=== PATIENT | female | born 1990 | race Caucasian/White ===

== ENCOUNTER → 2017-10-26 | Outpatient (CLI) | payer BC ==
[~2017-10-26] MED LIST: BCPILLS
== END | disposition home or self-care (01) ==
LOC: C.LAB1850 14:35
PROVIDERS: ATTEND Obstetrics & Gynecology
DX: Z34.83 Encounter for supervision of other normal pregnancy, third trimester (principal)

== ENCOUNTER → 2017-10-29 | Outpatient (CLI) | payer BC ==
[2017-10-29 10:15] LABS: HEMATOCRIT 38.1 % (37-47); HEMOGLOBIN 13.3 g/dL (12.0-16.0)
== END | disposition home or self-care (01) ==
LOC: C.LAB1850 09:14
PROVIDERS: ATTEND Obstetrics & Gynecology
DX: Z34.83 Encounter for supervision of other normal pregnancy, third trimester (principal)

== ENCOUNTER 2020-07-02 05:51 | Inpatient (IN) ==
--- NOTE | 2020-06-19 10:16 | PAT Medication Instructions ---
Medication Instructions Date of Service June 19, 2020 Home Medications nutritional supplement-fiber [Juice Plus] 1 ea PO BID STOP taking 2 weeks before surgery (or as soon as possible if surgery is within 2 weeks) nutritional supplement-fiber [Juice Plus] 1 ea PO BID Other Notes If you have any questions please call us at [phone] or [phone] or [phone] or [phone]
--- NOTE | 2020-06-20 10:17 | Anesthesiology Consultation ---
Date of Service June 20, 2020 Assessment & Plan (1) Encounter for pre-operative examination: Chart Review Chart Review: Acceptable Risk for Surgery and Patient seen in Pre Admission Testing Pt does have small veins- may be difficult IV stick Had two previous C-sections. Initial done (in 2015) secondary to f ailure to progress and cephalopelvic disproportion. No issues with initial C- section. With second (done in 2017)- no issues noted until towards the end- pt started to have sensation with suturing- was put under sedation. Previous C-sections were not done at [facility] (Operative reports from previous C- sections included- no mention of issues during second . Per PAT appt on 06/14/20, pt resides in [facility]. Works in [employer] but working from home currently. Wears mask, uses good hand hygiene and socially distances. No known Covid positive contacts or Covid related symptoms. Per surgeon's office- will do Covid test 3-4 days prior to - educated patient to follow up with surgeon's office regarding Covid testing. Educated on importance of self quarantining, social distancing and wearing mask in public both for the patient and household contacts. Teaching & Discussion Pre-Anesthesia Teaching/Discussion Notes: Instructed NPO after midnight before surgery,except medications with 15 cc of water. Medication instructions provided according to the [facility] guidelines. History Surgery Operation Date: 07/02/20 07:30 Proposed Procedures p Section in LD - Dave Cyndi Wolf MD Height/Weight Height: 5 ft Weight: 54.6 kg Allergies Allergy/AdvReac Type Severity Reaction Status Date / Time hydrocodone Allergy Mild NAUSEA/VOMI Verified 06/14/20 10:49 TING Medications Home Medications Medication Instructions Recorded Confirmed Last Taken nutritional supplement-fiber 1 ea PO BID 06/14/20 06/14/20 Unknown [Juice Plus] Past Medical History Medical History History of gastric ulcer 2009- no issues since that time Migraine Stable and controlled Exercise / Class Metabolic Activity II 4-5 Yardwork/Stairs/Walk up hill (one flight of stairs - no chest pain- minimal SOB secondary to ) Past Family History Family History Sister Fibroids Other No pertinent family history Past Surgical History Surgical History H/O section X2 H/O ovarian cystectomy H/O wisdom tooth extraction Past Anesthesia History No Hx of Anesthesia Complications and No Family Hx of Anesthesia Complications History of PONV No Hx of PONV and No Hx of Motion Sickness Social History Smoking Status: Never smoker Do You Dip or Chew Tobacco: No Hx Alcohol Use: Yes (WHEN NOT ) Alcohol type: beer alcohol intake frequency: a few times a week Alcohol Intake Frequency Comment: BEER WHEN NOT Hx Substance Use: No Review of Systems Occ reflux- related- stable SOB- occ - secondary to - relieved with standing up Patient denies chest pain, shortness of breath, dyspnea on exertion, reflux, cough, wheezing, palpitations. No hx of seizures, stroke, SD. No hx of blood clots or blood transfusions Physical Exam Vital Signs VITALS BP 96/68 P 90 TEMP 98.1 SP02 96% RESP 16 Constitutional no acute distress ENMT Mouth: no TMJ clicking Thyromental Distance: < 3.5 Finger Breadths (3.0) Mallampati Class: II Denies loose or missing teeth Neck neck extension not limited Respiratory normal respiratory effort; no respiratory distress Auscultation: lungs clear to auscultation bilaterally; no wheezes Cardiovascular Rate/Rhythm: regular rate and regular rhythm Heart Sounds: no murmur Musculoskeletal Spine: no pain with cervical ROM Neurologic moves all extremities Psychiatric Orientation: alert Testing Laboratory Results 06/20/20 10:48 06/20/20 10:48 PT 9.3 Seconds (9.0-12.0) 06/20/20 10:48 INR 0.9 (0.9-1.1) 06/20/20 10:48 APTT 22.8 Seconds (21.0-31.0) 06/20/20 10:48 Blood Type A Positive 06/20/20 10:48 Antibody Screen NEGATIVE 06/20/20 10:48
[2020-06-20 12:20] LABS: Basophils # (auto) 0.02 K/uL (0-0.2); Basophils % (auto) 0.2 %; Eosinophils # (auto) 0.17 K/uL (0-0.5); Eosinophils % (auto) 1.8 %; Hematocrit (blood only) 39.9 % (37-47); Hemoglobin 13.1 g/dL (12.0-16.0); Immature Granulocytes # (auto) 0.05 K/uL (0.00-0.02); Immature Granulocytes % (auto) 0.5 %; Lymphocytes # (auto) 2.11 K/uL (1.2-3.4); Lymphocytes % (auto) 21.9 %; Mean Corpuscular Hemoglobin 29.9 pg (25-34); Mean Corpuscular Hgb Conc 32.8 g/dL (32-36); Mean Corpuscular Volume 91.1 fL (80-100); Mean Platelet Volume 11.6 fL (7.4-10.4); Monocytes # (auto) 0.61 K/uL (0.11-0.59); Monocytes % (auto) 6.3 %; Neutrophils # (auto) 6.66 K/uL (1.4-6.5); Neutrophils % (auto) 69.3 %; Platelet Count 174 K/uL (130-400); RDW Coefficient of Variation 13.2 % (11.5-14.5); RDW Standard Deviation 43.4 fL (36.4-46.3); Red Blood Count 4.38 M/uL (4.2-5.4); White Blood Count 9.62 K/uL (4.8-10.8)
[2020-06-20 12:32] LABS: BUN Creatinine Ratio 8.4 (10-20); Calcium 8.3 mg/dl (8.5-10.1); Creatinine Clr Calc Pharmacy 97.6 ml/min; Est GFR (African American) 140.8; Est GFR (Non-African American) 121.5; INR 0.9 (0.9-1.1); Partial Thromboplastin Ratio 0.8; Partial Thromboplastin Time 22.8 Seconds (21.0-31.0); Potassium 4.6 mmol/L (3.5-5.1); Prothrombin Time 9.3 Seconds (9.0-12.0)
--- NOTE | 2020-06-24 15:18 | History and Physical Report ---
DATE OF ADMISSION: 07/02/2020 CHIEF COMPLAINT: Intrauterine , 39 weeks gestation, 2 previous sections. HISTORY OF PRESENT ILLNESS: The patient is a 30-year-old 3, para 2, good general health, no known drug allergies, only medications vitamins, well dated with first trimester ultrasound. Her due date is 07/08/2020. OBSTETRICAL HISTORY FOLLOWS: In 2016, she had a girl, 6 pounds 12 ounces. She had over a 24-hour labor and pushed off and on for 10 hours. She had arrest of labor secondary to cephalopelvic disproportion. Second in 2018, another girl, 5 pounds 9 ounces, repeat at 39 weeks. Presently being scheduled for repeat at 39 weeks and 1 day due to history of cephalopelvic disproportion and 2 previous sections. ALLERGIES: No known drug allergies. PAST SURGICAL HISTORY: Two previous C-sections. She has had 2 previous ovarian cystectomies and wisdom teeth removed. PAST MEDICAL HISTORY: No history of rheumatic fever, heart disease, heart murmur, diabetes, or tuberculosis. SOCIAL HISTORY: No smoking, no alcohol intake. 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 FAMILY HISTORY: She has 2 children in good health. Mom 55 in good health. Father 58 in good health. Two brothers and one sister in good health. REVIEW OF SYSTEMS: She does have a history of migraine headaches. PHYSICAL EXAMINATION: GENERAL: Well-developed, well-nourished 30-year-old white female, alert, oriented x3 and cooperative, in no acute distress, appears stated age. EYES: Conjunctivae are pink. Sclerae white, no evidence of jaundice. EARS: Had normal light reflex bilaterally. NOSE: Had normal mucosa. Septum is midline. There were no polyps. THROAT: No erythema or evidence of infection. Teeth are in good state of repair. HEAD: Normocephalic, normal distribution of hair. NECK: Supple. Trachea in the midline. Thyroid is not enlarged. There is no adenopathy appreciated. Both carotids are of good intensity. CHEST: Clear to auscultation and percussion. No wheezes, rales or rhonchi appreciated. BREASTS: Normal. ABDOMEN: Consistent with a term size fetus, estimated weight over 6 pounds. Well-healed Pfannenstiel scar. MUSCULOSKELETAL: Revealed no calf tenderness. PELVIC: Vertex presentation. Cervix posterior, 1-2 cm, firm. IMPRESSIONS OF THIS CASE: Two previous sections, status post wisdom teeth removal, status post ovarian cystectomy, history of cephalopelvic disproportion, intrauterine at 39+ weeks' gestation.
[2020-07-02] MEDS ORDERED: SODIUM CHLORIDE 0.9% 250 ML IV PRN (05:55)
[2020-07-02] MEDS ORDERED: cefOXitin 2,000 MG in DEXTROSE 5% 50 ML IV SCH (06:00)
[2020-07-02] MEDS ORDERED: LACTATED RINGER'S 1,000 ML IV SCH ×2 (06:00→09:30)
[2020-07-02] MEDS ORDERED: CITRIC ACID/SODIUM CITRATE 15 ML UDC PO SCH (06:00)
[2020-07-02 06:28] LABS: Basophils # (auto) 0.02 K/uL (0-0.2); Basophils % (auto) 0.2 %; Eosinophils # (auto) 0.37 K/uL (0-0.5); Eosinophils % (auto) 4.4 %; Hematocrit (blood only) 36.8 % (37-47); Hemoglobin 12.3 g/dL (12.0-16.0); Immature Granulocytes # (auto) 0.04 K/uL (0.00-0.02); Immature Granulocytes % (auto) 0.5 %; Lymphocytes # (auto) 2.34 K/uL (1.2-3.4); Lymphocytes % (auto) 27.8 %; Mean Corpuscular Hemoglobin 29.7 pg (25-34); Mean Corpuscular Volume 88.9 fL (80-100); Mean Platelet Volume 11.3 fL (7.4-10.4); Monocytes # (auto) 0.57 K/uL (0.11-0.59); Monocytes % (auto) 6.8 %; Neutrophils # (auto) 5.09 K/uL (1.4-6.5); Neutrophils % (auto) 60.3 %; Platelet Count 148 K/uL (130-400); RDW Coefficient of Variation 13.3 % (11.5-14.5); RDW Standard Deviation 43.6 fL (36.4-46.3); Red Blood Count 4.14 M/uL (4.2-5.4); White Blood Count 8.43 K/uL (4.8-10.8)
[2020-07-02 06:35] LABS: Mean Corpuscular Hgb Conc 33.4 g/dL (32-36)
[2020-07-02 06:38] LABS: INR 0.9 (0.9-1.1); Partial Thromboplastin Ratio 0.8; Partial Thromboplastin Time 23.1 Seconds (21.0-31.0); Prothrombin Time 9.5 Seconds (9.0-12.0)
[2020-07-02 07:05] LABS: BUN Creatinine Ratio 13.3 (10-20); Calcium 8.2 mg/dl (8.5-10.1); Creatinine Clr Calc Pharmacy 111.6 ml/min; Est GFR (African American) 143.2; Est GFR (Non-African American) 123.5
--- NOTE | 2020-07-02 07:23 | History & Physical Bridge Note ---
Date of Service July 02, 2020 History & Physical Bridge Note I have examined the patient, reviewed the History & Physical and in the interval since the performance of the History & Physical I have noted the following changes of clinical significance: no changes noted
[2020-07-02] MEDS ORDERED: fentaNYL citrate 100 MCG/2 ML VIAL ONE (07:25)
[2020-07-02] MEDS ORDERED: MoRPHine SULFATE PF 1 MG/ML 10 ML AMP/VIAL ONE (07:25)
[2020-07-02] MEDS ORDERED: PHENYLEPHRINE 100MCG/ML 5ML SYR ONE (08:23)
[2020-07-02] MEDS ORDERED: ePHEDrine sulfate 50 MG/ML SYR ONE (08:23)
[2020-07-02] MEDS ORDERED: ONDANSETRON INJ 2 MG/ML 2 ML VIAL ONE (08:23)
[2020-07-02] MEDS ORDERED: PHENYLEPHRINE HCL 10 MG/ML VIAL ONE (08:31)
[2020-07-02] MEDS ORDERED: OXYTOCIN 10 UNITS/ML VIAL IM ONE (08:42)
[2020-07-02] MEDS ORDERED: OXYTOCIN 10 UNITS/ML VIAL ONE ×4 (08:59→09:20)
[2020-07-02] MEDS ORDERED: KETOROLAC 30 MG/ML VIAL ONE (09:00)
[2020-07-02] MEDS ORDERED: DiphenhydrAMINE HCL 50 MG/ML VIAL ONE (09:18)
--- NOTE | 2020-07-02 09:21 | Post Operative Brief Note ---
Immediate Post Op Note v1 Date of Surgery July 02, 2020 Pre & Post Diagnosis Operation Date: 07/02/20 07:30 Pre-Op Diagnosis: Previous Section x 2; Pt desires Repeat Section. Post-Op Diagnosis: Same as Preop I identified the patient and participated in the time-out.: Yes Procedure Operation Date: 07/02/20 07:30 Actual Procedures p Section in LD; Live Male at 0837(Bilateral) - Dave Wolf MD Surgeon Dave Wolf MD Setter Molding And Coremaking Machines none Estimated Blood Loss 500 Findings Consistent with Post-Op Diagnosis Specimens placenta Drains Willoughby Catheter Anesthesia Type MAC Spinal Regional Complications none Disposition Accompanied Patient To Recovery: No Disposition: Recovery Room
[2020-07-02] MEDS ORDERED: ONDANSETRON INJ 2 MG/ML 2 ML VIAL IV PRN ×2 (09:22→09:44)
[2020-07-02] MEDS ORDERED: KETOROLAC 30 MG/ML VIAL IV PRN (09:22)
[2020-07-02] MEDS ORDERED: PROMETHAZINE HCL 25 MG in SODIUM CHLORIDE 0.9% 50 ML IV PRN ×2 (09:22→09:44)
[2020-07-02] MEDS ORDERED: DiphenhydrAMINE HCL 50 MG/ML VIAL IV PRN ×2 (09:22→09:44)
[2020-07-02] MEDS ORDERED: ZOLPIDEM TARTRATE 5 MG TAB PO PRN (09:22)
[2020-07-02] MEDS ORDERED: HYDROCORTISONE ACETATE 25 MG SUPP PR PRN (09:22)
[2020-07-02] MEDS ORDERED: DIPHTHERIA/TETANUS/PERTUSSIS 0.5 ML SYR/VIAL IM ONE (09:22)
[2020-07-02] MEDS ORDERED: MEPERIDINE HCL 50 MG/ML CARP IV PRN (09:22)
[2020-07-02] MEDS ORDERED: SUPERCREAM 0.870% 15 GM JAR EXT PRN (09:22)
[2020-07-02] MEDS ORDERED: BENZOCAINE 20% AER SPR 82.5 GM CAN EXT PRN (09:22)
[2020-07-02] MEDS ORDERED: MAGNESIUM HYDROXIDE SUSP 30 ML UDC PO PRN (09:22)
[2020-07-02] MEDS ORDERED: SENNA 8.6 MG TAB PO PRN (09:22)
[2020-07-02] MEDS ORDERED: MoRPHine SULFATE 2 MG/ML CARP IV PRN (09:44)
[2020-07-02] MEDS ORDERED: NALOXONE HCL 0.4 MG/1 ML VIAL/CARP IV PRN (09:44)
[2020-07-02] MEDS ORDERED: ePHEDrine sulfate 50 MG/ML AMP IV PRN (09:44)
[2020-07-02] MEDS ORDERED: MoRPHine SULFATE PF 1 MG/ML 10 ML AMP/VIAL INT SPINAL ONE (09:44)
[2020-07-02] MEDS ORDERED: LACTATED RINGER'S 500 ML IV PRN (09:44)
[2020-07-02] MEDS ORDERED: NALOXONE HCL 1 MG in SODIUM CHLORIDE 0.9% 1000ML 1,000 ML IV PRN (09:44)
[2020-07-02] MEDS ORDERED: NALOXONE HCL 0.08 MG in SYRINGE 1.8 ML IV PRN (09:44)
[2020-07-02] MEDS ORDERED: ACETAMINOPHEN 1000 MG/100 ML IV IV PRN (09:44)
[2020-07-02] MEDS ORDERED: SODIUM CHLORIDE 0.9% 1000ML 1,000 ML IV SCH (09:45)
[2020-07-02] MEDS ORDERED: NO NARCOTICS OR SEDATIVES SCH (09:45)
--- NOTE | 2020-07-02 09:55 | Anesthesiology Progress Note ---
Date of Service July 02, 2020 Anesthesia Post Procedure Vital Signs Vital Signs: Temp Pulse Resp BP Pulse Ox 07/02/20 09:51 78 103/66 07/02/20 09:49 80 97 07/02/20 09:44 82 97 07/02/20 09:43 85 105/59 L 07/02/20 09:39 83 97 07/02/20 09:34 93 H 96 07/02/20 09:31 88 123/70 07/02/20 09:29 36.8 C 77 16 85 L 07/02/20 06:01 36.7 C 93 H 18 106/71 07/02/20 06:00 93 H 106/71 Transfer of Care Handoff Completed per policy Notes Mental Status: alert / awake / arousable and participated in evaluation Nausea / Vomiting: adequately controlled Pain: adequately controlled Airway Patency, RR, SpO2: stable & adequate BP & HR: stable & adequate Hydration State: stable & adequate Neuraxial Anesthesia: was administered and sensory block is resolving Anesthetic Complications: no major complications apparent and Pt Satisfied with anesthetic care
--- NOTE | 2020-07-02 10:02 | Operative Report (OR) ---
DATE OF OPERATION: 07/02/2020 The patient is a 3, para 2. PROCEDURE: Repeat low segment section. INDICATIONS FOR SURGERY: Two previous sections, cephalopelvic disproportion. PREOPERATIVE DIAGNOSES: Cephalopelvic disproportion, repeat section. POSTOPERATIVE DIAGNOSES: Cephalopelvic disproportion, repeat section, delivered live male . SURGEON: Alana Wolf MD. LEAN MANUFACTURING LEADER: Nursing assist. ESTIMATED BLOOD LOSS: 500 mL. ANESTHESIA: Spinal. OPERATIVE FINDINGS AND PROCEDURE: The patient was brought to the OR table, correctly identified by armband and conversation. Spinal anesthesia was administered. Then the Willoughby catheter was inserted aseptically in the bladder, connected to gravity drainage. Compression stockings were applied. Lower abdomen was painted with an alcohol based sterilizing solution. It was allowed for 3 minutes to dry, then draped in usual sterile fashion. We tested for adequate anesthesia, then started the procedure by excising an old scar, which was somewhat puckered. We then incised the fascia transversely from the underlying muscle by blunt and sharp dissection. The recti muscles were in the midline exposing the peritoneum which was carefully raised and entered. A bladder blade was used to retract the lower uterine segment, exposed the lower uterine segment, looked to be intact in good shape. Incision was made above the vesicouterine fold. Bladder was advanced out of the operative field. Lower uterine segment was scored with a knife, then entered with scissors. Clear amniotic fluid was seen at this time. Vectis retractor was applied to the head with fundal pressure. A live male infant was delivered. Infant was suctioned through the mouth and the nose and the was attended to by the adjunct writing instructor, Dr. Patten, who was scrubbed and present at the time of delivery. Cord blood was taken. Placenta was removed manually. Uterus, tubes and ovaries were brought out through the incision. Uterine cavity was cleansed with a clean sponge. Ten units of Pitocin was injected directly into the uterine muscle. Then the lower uterine defect was approximated in layers. Muscular layer was approximated with continuous chromic gut layer. The fascial layer was approximated with a continuous layer of Vicryl. Two interrupted [id number] Vicryls were used to complete the approximation and complete hemostasis. Then, the peritoneal edges restored with a 3-0 chromic, which restored the integrity of the vesicouterine fold. Incisional line was hemostatic. We cleansed the pelvis of all blood clots and debris. Uterus, tubes and ovaries were reinserted into the abdominal cavity. Attention was turned to the abdomen. The peritoneum was closed with a mattress suture of chromic gut. The muscular layer was approximated with interrupted [id number] suture of chromic. Then, the fascial layer was approximated with wide bites of Vicryl and run from the right side of the fascial defect to the middle, then from the left side of the defect to the middle. Then the subQ was approximated with continuous plain and skin edges were approximated with staple clips. I attest to the content of the Intraoperative Record and any orders documented therein. Any exception s are noted below.
[2020-07-02] MEDS: OXYTOCIN 20 UNITS in LACTATED RINGER'S 1,000 ML IV SCH ×2 (11:45→20:19)
[2020-07-02] MEDS ORDERED: DiphenhydrAMINE HCL 50 MG/ML VIAL IV STA (12:15)
[2020-07-02] MEDS: SIMETHICONE 80 MG CHEW PO SCH ×3 (12:52→21:27)
[2020-07-02] MEDS: KETOROLAC 30 MG/ML VIAL IV PRN (19:12)
[2020-07-02] MEDS: DOCUSATE SODIUM 100 MG CAP PO SCH (21:27)
[2020-07-03] MEDS: KETOROLAC 30 MG/ML VIAL IV PRN (02:28)
[2020-07-03] MEDS ORDERED: DC INTRASPINAL MORPHINE ONE (03:47)
[2020-07-03 05:54] LABS: Basophils # (auto) 0.03 K/uL (0-0.2); Basophils % (auto) 0.3 %; Eosinophils # (auto) 0.32 K/uL (0-0.5); Eosinophils % (auto) 3.1 %; Hematocrit (blood only) 34.9 % (37-47); Hemoglobin 11.7 g/dL (12.0-16.0); Immature Granulocytes # (auto) 0.03 K/uL (0.00-0.02); Immature Granulocytes % (auto) 0.3 %; Lymphocytes % (auto) 16.3 %; Mean Corpuscular Hemoglobin 29.8 pg (25-34); Mean Corpuscular Hgb Conc 33.5 g/dL (32-36); Mean Platelet Volume 11.6 fL (7.4-10.4); Monocytes # (auto) 0.71 K/uL (0.11-0.59); Monocytes % (auto) 6.8 %; Neutrophils # (auto) 7.64 K/uL (1.4-6.5); Neutrophils % (auto) 73.2 %; Platelet Count 140 K/uL (130-400); RDW Coefficient of Variation 13.4 % (11.5-14.5); RDW Standard Deviation 43.4 fL (36.4-46.3); Red Blood Count 3.92 M/uL (4.2-5.4); White Blood Count 10.43 K/uL (4.8-10.8)
[2020-07-03] MEDS: SIMETHICONE 80 MG CHEW PO SCH ×4 (09:07→20:01)
[2020-07-03] MEDS: PRENATAL VITAMIN 1 TAB PO SCH (09:08)
[2020-07-03] MEDS: FERROUS SULFATE 325 MG TAB PO SCH (09:08)
[2020-07-03] MEDS: DOCUSATE SODIUM 100 MG CAP PO SCH ×2 (09:08→20:01)
[2020-07-03] MEDS: IBUPROFEN 600 MG TAB PO PRN ×3 (09:09→19:15)
--- NOTE | 2020-07-03 10:04 | Obstetrical Progress Note ---
Date of Service July 03, 2020 Assessment & Plan Admission and Anticipated Discharge Date Admission Date: July 02, 2020 Physical Exam Physical Exam: abdomen soft and non tender incision is clean and dry no calf tenderness passing flatus ambulating well vaginal bleeding scant hgb 11.7 Results & Data ([facility]) Vital Signs (Past 12 Hours) Vital Signs Temp Pulse Resp BP BP Pulse Ox 07/03/20 07:52 37 C 71 18 99/64 L 99 07/03/20 04:20 36.8 C 76 20 90/58 L 99 07/03/20 03:45 20 99 07/03/20 02:30 18 98 07/03/20 01:37 20 99 07/03/20 00:00 18 99 07/02/20 23:30 36.7 C 68 18 95/60 L 100 07/02/20 22:56 18 96
[2020-07-03] MEDS ORDERED: bisacodyL 5 MG TABEC PO SCH (20:00)
[2020-07-04] MEDS: IBUPROFEN 600 MG TAB PO PRN ×3 (00:13→09:36)
[2020-07-04] MEDS: OXYCODONE/ACETAMINOPHEN 5mg/325mg TAB PO PRN ×3 (01:05→09:34)
--- NOTE | 2020-07-04 06:45 | Obstetrical Progress Note ---
Date of Service July 04, 2020 Assessment & Plan Admission and Anticipated Discharge Date Admission Date: July 02, 2020 Physical Exam Physical Exam: abdomen soft and non tender incision is clean and dry no calf tenderness ambulating well vaginal bleeding scant hgb 11.7 Results & Data ([facility]) Vital Signs (Past 12 Hours) Vital Signs Temp Pulse Resp BP Pulse Ox 07/03/20 23:30 36.6 C 82 18 97/63 L 98
--- NOTE | 2020-07-04 07:15 | Discharge Summary (DS) ---
She is a 3, para 3, blood type is A positive, group B strep negative, followed in our office for care and delivery. She had 2 previous sections. On the day of admission, she was given prophylactic antibiotics, spinal anesthesia. Taken to the OR where she underwent repeat low segment section. Uterine integrity at the time of surgery was good and she delivered a live via section. Blood loss was minimal. Her preoperative hemoglobin was 12.3, postoperatively it was 11.7. Within 24 hours, her bowel sounds returned and she was ambulating well. She remained afebrile throughout her entire post-delivery course. At the time of discharge, she was ambulating well, eating well. Vaginal bleeding was minimal. She was taking just a few Percocet, so we gave her prescription for 20 Percocet. Told to call the office if she had temperature over 100 or any heavy bleeding and she was told to come in a week for removal of aleisha.
[2020-07-04 08:11] LABS: Hematocrit (blood only) 34.8 % (37-47); Hemoglobin 11.2 g/dL (12.0-16.0)
[2020-07-04] MEDS ORDERED: bisacodyL 10 MG SUPP PR PRN (09:22)
[2020-07-04] MEDS: SIMETHICONE 80 MG CHEW PO SCH ×2 (09:33→12:54)
[2020-07-04] MEDS: DOCUSATE SODIUM 100 MG CAP PO SCH (09:34)
[2020-07-04] MEDS: FERROUS SULFATE 325 MG TAB PO SCH (09:34)
[2020-07-04] MEDS: PRENATAL VITAMIN 1 TAB PO SCH (09:34)
== END 2020-07-04 14:27 | disposition home or self-care (01) | DRG 788 ==
LOC: 4S1 05:51 → EDSTATUS 07:30 → 4S2 11:53

== ENCOUNTER 2023-11-03 05:33 | Inpatient (IN) ==
--- NOTE | 2023-10-29 09:30 | Anesthesiology Consultation ---
Date of Service October 29, 2023 Assessment & Plan (1) Encounter for pre-operative examination: - 07/02/20 SAB at L3-L4 2 attempts. - Per managed care nurse on 10/29/2023: No known infectious disease contacts, current infectious disease symptoms in past 10 days or COVID positive test result in the past 30 days. Chart Review Chart Review: blasting entry specialist initiated History Surgery Operation Date: 11/03/23 07:30 Proposed Procedures p Repeat Section in LD - Dave Wolf MD Height/Weight Height: 5 ft Weight: 58.06 kg Allergies Allergy/AdvReac Type Severity Reaction Status Date / Time hydrocodone Allergy Intermediate NAUSEA/VOMI Verified 10/29/23 08:33 TING codeine AdvReac Intermediate NAUSEA/VOMI Verified 10/29/23 08:33 TING Medications Home Medications Medication Instructions Recorded Confirmed Last Taken No Known Home Medications 10/29/23 10/29/23 Unknown Past Medical History Medical History History of COVID-19 01/2021- no hosp; resolved History of gastric ulcer 2009- no issues since that time Migraine hx in remission Past Family History Family History Sister Fibroids Other No pertinent family history Past Surgical History Surgical History H/O wisdom tooth extraction H/O ovarian cystectomy H/O section X3 Social History Smoking Status: Never smoker Do You Dip or Chew Tobacco: No Hx Alcohol Use: No Alcohol type: beer alcohol intake frequency: a few times a week Hx Substance Use: No substance use type: does not use
[2023-11-03] MEDS ORDERED: LACTATED RINGER'S 1,000 ML IV SCH ×3 (05:45→09:30)
[2023-11-03] MEDS ORDERED: cefOXitin 2,000 MG in DEXTROSE 5 % MINI-B 50 ML IV SCH (06:00)
[2023-11-03] MEDS ORDERED: CITRIC ACID/SODIUM CITRATE 15 ML UDC PO SCH (06:00)
[2023-11-03 06:05] LABS: Basophils # (auto) 0.07 K/uL (0.00-0.20); Basophils % (auto) 0.8 %; Eosinophils # (auto) 0.45 K/uL (0.00-0.50); Eosinophils % (auto) 5.2 %; Hematocrit (blood only) 38.4 % (37.0-47.0); Hemoglobin 12.9 g/dl (12.0-16.0); Immature Granulocytes # (auto) 0.06 K/uL (0.01-0.20); Immature Granulocytes % (auto) 0.7 %; Lymphocytes # (auto) 2.05 K/uL (1.20-3.40); Lymphocytes % (auto) 23.6 %; Mean Corpuscular Hemoglobin 30.1 pg (25.0-34.0); Mean Corpuscular Hgb Conc 33.6 g/dL (32.0-36.0); Mean Corpuscular Volume 89.5 fL (80.0-100.0); Mean Platelet Volume 12.1 fL (9.4-12.4); Monocytes # (auto) 0.68 K/uL (0.11-0.59); Monocytes % (auto) 7.8 %; Neutrophils # (auto) 5.36 K/uL (1.40-6.50); Neutrophils % (auto) 61.9 %; Platelet Count 174 K/uL (130-400); RDW Coefficient of Variation 13.8 % (11.5-14.5); RDW Standard Deviation 45.1 fL (36.4-46.3); Red Blood Count 4.29 M/uL (4.20-5.40); White Blood Count 8.67 K/ul (4.8-10.8)
--- NOTE | 2023-11-03 07:14 | History & Physical Bridge Note ---
Date of Service November 03, 2023 History & Physical Bridge Note I have examined the patient, reviewed the History & Physical and in the interval since the performance of the History & Physical I have noted the following changes of clinical significance: no changes noted
[2023-11-03] MEDS ORDERED: HYDROmorphone INJ 0.5 MG/0.5 ML SYR IV PRN (07:27)
[2023-11-03] MEDS ORDERED: ePHEDrine sulfate 50 MG/ML AMP IV PRN (07:27)
[2023-11-03] MEDS ORDERED: ONDANSETRON INJ 2 MG/ML 2 ML VIAL IV PRN (07:27)
[2023-11-03] MEDS ORDERED: MoRPHine SULFATE 2 MG/ML CARP IV PRN (07:27)
[2023-11-03] MEDS ORDERED: NALOXONE HCL 0.08 MG in SYRINGE 1.8 ML IV PRN (07:27)
[2023-11-03] MEDS ORDERED: PROMETHAZINE HCL 12.5 MG in SODIUM CHLORIDE 0.9% 50 ML IV PRN (07:27)
[2023-11-03] MEDS ORDERED: LACTATED RINGER'S 500 ML IV PRN (07:27)
[2023-11-03] MEDS ORDERED: diphenhydrAMINE 50 MG/ML VIAL IV PRN (07:27)
[2023-11-03] MEDS ORDERED: NALOXONE HCL 0.4 MG/1 ML VIAL/CARP IV PRN (07:27)
[2023-11-03] MEDS ORDERED: MEPERIDINE HCL 25 MG/ML CARP/VIAL IV PRN (07:27)
[2023-11-03] MEDS ORDERED: MoRPHine SULFATE PF 1 MG/ML 10 ML AMP/VIAL INT SPINAL ONE (07:27)
[2023-11-03] MEDS ORDERED: NALBUPHINE HCL 5 MG in SYRINGE 0 ML IV PRN (07:27)
[2023-11-03] MEDS ORDERED: NALOXONE HCL 1 MG in SODIUM CHLORIDE 0.9% 1,000 ML IV PRN (07:27)
[2023-11-03] MEDS ORDERED: KETOROLAC 30 MG/ML VIAL IV PRN ×2 (07:27→09:18)
[2023-11-03] MEDS ORDERED: METOCLOPRAMIDE HCL 10 MG in SODIUM CHLORIDE 0.9% 50 ML IV PRN (07:27)
[2023-11-03] MEDS ORDERED: NO NARCOTICS OR SEDATIVES SCH (07:30)
[2023-11-03] MEDS ORDERED: DC INTRASPINAL MORPHINE SCH (07:30)
[2023-11-03] MEDS ORDERED: SODIUM CHLORIDE 0.9% 1,000 ML IV SCH (07:30)
[2023-11-03] MEDS ORDERED: MoRPHine SULFATE PF 1 MG/ML 10 ML AMP/VIAL ONE (07:41)
[2023-11-03] MEDS ORDERED: ePHEDrine sulfate 50 MG/5 ML SYR ONE (08:27)
[2023-11-03] MEDS ORDERED: PHENYLEPHRINE 100MCG/ML 10ML SYR IV ONE (08:27)
[2023-11-03] MEDS ORDERED: OXYTOCIN 10 UNITS/ML VIAL ONE (08:28)
[2023-11-03] MEDS ORDERED: OXYTOCIN 10 UNITS/ML 10ML VIAL IM ONE (08:39)
[2023-11-03] MEDS ORDERED: fentaNYL citrate PF 100 MCG/2 ML VIAL ONE (08:46)
[2023-11-03] MEDS ORDERED: BENZOCAINE 20% SPRY 85 APPLN/85 GM CAN EXT PRN (09:18)
[2023-11-03] MEDS ORDERED: DIPHTHERIA/TETANUS/PERTUSSIS Vaccine (Tdap, Age 7+yrs) 0.5mL SYR/VL IM ONE (09:18)
[2023-11-03] MEDS ORDERED: SENNA 8.6 MG TAB PO PRN (09:18)
[2023-11-03] MEDS ORDERED: MAGNESIUM HYDROXIDE SUSP 30 ML UDC PO PRN (09:18)
[2023-11-03] MEDS ORDERED: HYDROCORTISONE ACETATE 25 MG SUPP PR PRN (09:18)
--- NOTE | 2023-11-03 09:31 | Operative Report ---
Post Operative Report Procedure Date: November 03, 2023 Pre & Post Diagnosis: [] Intrauterine at 39 weeks gestation. 3 previous sections. Time Out: I identified the patient and participated in the time-out. Procedure: [] Repeat section. Surgeon: [] Dr. Wolf. Tactical Debriefer: [] None. Estimated Blood Loss: [] 500 mL. Findings: [] Thin lower uterine segment. Specimens: [] Placenta. Description of Procedure: [] Patient was brought to the OR table. Correctly identified by armband and conversation. Epidural anesthesia was administered. A Willoughby catheter was inserted aseptically into the bladder. Lower abdominal area was painted with an alcohol-based sterilizing solution. Solution was allowed to dry for 3 full minutes. Patient was then draped in usual sterile fashion. The adequacy of the spinal was tested and found to be good. An incision was made through her previous Pfannenstiel scar. Incision was carried down to the anterior fascia. Hemostasis was secured by electrocauterization. The fascia was incised transversely the underlying muscle. Recti muscles were in the midline. Lower uterine segment was exposed. Lower uterine segment was very thin. The lower uterine segment was then entered by scoring with a knife and then entering bluntly with the scissors. Clear amniotic fluid was seen at this time. A pectus retractor was applied to the infant's head. With fundal pressure the infant was delivered without difficulty. Cord was allowed to pulse for 1 minute. Then clamped and cut. The was attended to by the air traffic instructor who is scrubbed and present at the time of the delivery. Following this placenta was removed manually. Uterus tubes and ovaries were brought out through the incision. Uterine cavity was cleansed with a clean sponge. 10 units of Pitocin was injected into the myometrium. Inspection of the lower uterine segment revealed defect on the right side. We used Chromic Gut suture to approximate the muscular layer and attempt to obliterate the lower uterine segment weakness. This was done in a continuous fashion. A second layer was approximated over this with horizontally placed sutures of heavy Vicryl this helped obliterate the week area and make a good approximation of the lower uterine segment following this 3 lkvhya-[id number] sutures were used to complete the approximation. Pelvis was cleansed of all blood clots and debris. Uterus tubes and ovaries were reinserted into the abdomen. Careful anatomical approximation of the anterior abdominal wall was performed. The peritoneum was approximated with a continuous Chromic Gut suture. Recti muscles were approximated with interrupted [id number]-yk-gprlm sutures of chromic catgut. Fascia was closed with a continuous interlocking suture of Vicryl on each side and tied in the midline. Subcutaneous area was approximated with a running plain. Skin edges were approximated with staple clips. Patient tolerated procedure well. Attestation: I attest to the content of the Intraoperative Record and any orders documented therein. Any exceptions are noted below.
[2023-11-03] MEDS ORDERED: ACETAMINOPHEN 1,000 MG/100 ML VIAL IV PRN (10:19)
--- NOTE | 2023-11-03 10:19 | Anesthesiology Progress Note ---
Date of Service November 03, 2023 Anesthesia Post Procedure Vital Signs Vital Signs: Temp Pulse Resp BP Pulse Ox 11/03/23 10:15 18 11/03/23 10:13 100 11/03/23 10:13 75 11/03/23 10:13 78 108/73 11/03/23 10:08 71 100 11/03/23 10:03 70 100 11/03/23 10:02 68 113/73 11/03/23 09:58 82 99 11/03/23 09:53 99 11/03/23 09:53 76 11/03/23 09:53 68 109/75 11/03/23 09:48 73 97 11/03/23 09:43 97 11/03/23 09:43 81 11/03/23 09:43 76 107/62 11/03/23 09:38 83 97 11/03/23 09:36 99 H 92 11/03/23 09:33 100 11/03/23 09:33 76 11/03/23 09:33 80 110/61 11/03/23 09:30 84 88 L 11/03/23 09:28 80 100 11/03/23 09:24 78 117/72 11/03/23 09:23 80 100 11/03/23 05:49 36.7 C 18 11/03/23 05:42 80 103/71 Pain Intensity Lower Abdomen: Pain Intensity: 2 Transfer of Care Handoff Completed per policy Notes Mental Status: alert / awake / arousable and participated in evaluation Nausea / Vomiting: adequately controlled Pain: adequately controlled Airway Patency, RR, SpO2: stable & adequate BP & HR: stable & adequate Hydration State: stable & adequate Neuraxial Anesthesia: was administered and sensory block is resolving Anesthetic Complications: no major complications apparent and Pt Satisfied with anesthetic care
[2023-11-03] MEDS: OXYTOCIN 30 UNITS/LR 1,003 ML IV SCH ×2 (16:27→23:50)
[2023-11-03] MEDS: SIMETHICONE 80 MG CHEW PO SCH ×4 (17:51→20:08)
[2023-11-03] MEDS: DOCUSATE SODIUM 100 MG CAP PO SCH (20:08)
[2023-11-04] MEDS ORDERED: diphenhydrAMINE Capsule 25 MG CAP PO PRN (01:48)
[2023-11-04] MEDS ORDERED: ONDANSETRON INJ 2 MG/ML 2 ML VIAL IV PRN (01:48)
[2023-11-04] MEDS ORDERED: PROMETHAZINE HCL 25 MG in SODIUM CHLORIDE 0.9% 50 ML IV PRN (01:48)
[2023-11-04] MEDS ORDERED: ZOLPIDEM TARTRATE 5 MG TAB PO PRN (01:48)
[2023-11-04] MEDS ORDERED: diphenhydrAMINE 50 MG/ML VIAL IV PRN (01:48)
[2023-11-04] MEDS ORDERED: MEPERIDINE HCL 50 MG/ML CARP IV PRN (01:48)
[2023-11-04 06:22] LABS: Basophils # (auto) 0.08 K/uL (0.00-0.20); Basophils % (auto) 0.7 %; Eosinophils # (auto) 0.23 K/uL (0.00-0.50); Hematocrit (blood only) 34.4 % (37.0-47.0); Hemoglobin 11.4 g/dl (12.0-16.0); Immature Granulocytes # (auto) 0.08 K/uL (0.01-0.20); Immature Granulocytes % (auto) 0.7 %; Lymphocytes # (auto) 1.46 K/uL (1.20-3.40); Lymphocytes % (auto) 12.7 %; Mean Corpuscular Hemoglobin 30.3 pg (25.0-34.0); Mean Corpuscular Hgb Conc 33.1 g/dL (32.0-36.0); Mean Corpuscular Volume 91.5 fL (80.0-100.0); Mean Platelet Volume 12.3 fL (9.4-12.4); Monocytes # (auto) 0.71 K/uL (0.11-0.59); Monocytes % (auto) 6.2 %; Neutrophils # (auto) 8.93 K/uL (1.40-6.50); Neutrophils % (auto) 77.7 %; Platelet Count 149 K/uL (130-400); RDW Coefficient of Variation 13.9 % (11.5-14.5); RDW Standard Deviation 46.5 fL (36.4-46.3); Red Blood Count 3.76 M/uL (4.20-5.40); White Blood Count 11.49 K/ul (4.8-10.8)
[2023-11-04] MEDS: IBUPROFEN 600 MG TAB PO PRN ×5 (06:28→23:34)
[2023-11-04] MEDS: DOCUSATE SODIUM 100 MG CAP PO SCH ×2 (07:57→19:52)
[2023-11-04] MEDS: SIMETHICONE 80 MG CHEW PO SCH ×4 (07:57→19:52)
[2023-11-04] MEDS: FERROUS SULFATE 325 MG TAB PO SCH (08:19)
[2023-11-04] MEDS: PRENATAL VITAMIN 1 TAB PO SCH (08:19)
--- NOTE | 2023-11-04 09:14 | Obstetrical Progress Note ---
Date of Service November 04, 2023 Assessment & Plan Admission and Anticipated Discharge Date Admission Date: November 03, 2023 Subjective bandage removed incision is clean and dry no calf tenderness ambulating well vaginal bleeding scant hgb 11.4 Results & Data Vital Signs (Past 12 Hours) Vital Signs Temp Pulse Resp BP Pulse Ox O2 Del Method 11/04/23 08:00 36.6 C 77 20 93/63 L 100 Room Air 11/04/23 04:36 36.8 C 68 16 97/63 L 99 Room Air 11/04/23 01:05 14 97 11/04/23 00:05 16 99 11/04/23 00:05 36.8 C 75 16 109/64 99 Room Air 11/03/23 23:49 36.7 C 64 16 105/70 Room Air 11/03/23 23:00 16 100 11/03/23 22:32 14 98
[2023-11-04 15:30] VITALS: TEMP 98.4
[2023-11-04] MEDS: oxyCODONE/ACETAMINOPHEN 5mg/325mg TAB PO PRN ×2 (19:52→23:35)
[2023-11-04] MEDS ORDERED: bisacodyL 5 MG TABEC PO SCH (20:00)
[2023-11-04 21:08] VITALS: RESP 18
[2023-11-04 23:46] VITALS: BP 97/62; PULSE 87; O2SAT 97
[2023-11-05 06:00] LABS: Hematocrit (blood only) 35.3 % (37.0-47.0); Hemoglobin 11.6 g/dl (12.0-16.0)
--- NOTE | 2023-11-05 08:48 | Obstetrical Progress Note ---
Date of Service November 05, 2023 Assessment & Plan Admission and Anticipated Discharge Date Admission Date: November 03, 2023 Subjective abdomen soft and non tender incision is clean and dry no calf tenderness ambulating well vaginal bleeding scant hgb 11.6 Results & Data Vital Signs (Past 12 Hours) Vital Signs Temp Pulse Resp BP Pulse Ox O2 Del Method 11/04/23 23:20 36.9 C 87 18 97/62 L 97 Room Air
[2023-11-05] MEDS: IBUPROFEN 600 MG TAB PO PRN ×2 (09:02→13:30)
[2023-11-05] MEDS: PRENATAL VITAMIN 1 TAB PO SCH ×2 (09:02→09:06)
[2023-11-05] MEDS: oxyCODONE/ACETAMINOPHEN 5mg/325mg TAB PO PRN ×2 (09:02→13:29)
[2023-11-05] MEDS: DOCUSATE SODIUM 100 MG CAP PO SCH (09:02)
[2023-11-05] MEDS: FERROUS SULFATE 325 MG TAB PO SCH ×2 (09:02→09:06)
[2023-11-05] MEDS: SIMETHICONE 80 MG CHEW PO SCH ×2 (09:02→13:24)
--- NOTE | 2023-11-05 09:04 | Discharge Summary ---
Date of Service November 05, 2023 Admission HPI Per Admitting Provider Patient has been followed in my office for care and delivery. She has had 3 previous sections for cephalopelvic disproportion. was well dated with a first trimester ultrasound. Patient was brought in at 39 weeks gestation for repeat section. The day of admission she was taken to the OR and given spinal anesthesia. A repeat section was performed under spinal. At the time of surgery she was noted to have some thinning of the lower uterine segment. This defect was repaired at the time of surgery. Blood loss during surgery was minimal. Postoperative hemoglobin was stable in the range of 12. She did receive prophylactic antibiotics prior to surgery. She remained afebrile throughout her entire postoperative course. Bowel sounds returned within 24 hours. At the time of discharge she was ambulating well eating well. She was given prescriptions for pain control. Told to return to the office in 1 week for removal of aleisha. To call if she had any heavy bleeding or elevated temperature. Discharge Data Consultations 11/03/23 05:40 Consult Anesthesiology Stat Procedures Performed Operation Date: 11/03/23 07:30 Actual Procedures p Repeat Section in LD with delivery of viable female infant at 0824 - Dave Wolf MD
[2023-11-05] MEDS ORDERED: bisacodyL 10 MG SUPP PR PRN (09:18)
== END 2023-11-05 12:45 | disposition home or self-care (01) | DRG 788 ==
LOC: 4S1 05:33 → EDSTATUS 07:30 → 4E2 12:53